=== PATIENT | male | born 1945 | race Caucasian/White ===

== ENCOUNTER 2017-01-27 14:32 | Inpatient (IN) | payer OTHER, MEDICAID ==
--- NOTE | 2017-01-27 14:54 | EDPHY ---
H & P Time Seen by Provider: 01/27/17 14:53 HPI/ROS: CHIEF COMPLAINT: Abdominal pain HISTORY OF PRESENT ILLNESS: Patient had hernia surgery about 2 and half years ago by a [facility] surgeon but he can't remember which 1. He tells me that 11:30 p.m. last night he started having nausea and multiple episodes of vomiting worse with oral intake. That finally stopped early this morning and then since late last night he has had epigastric abdominal pain that is moderate to severe and radiates to both sides but worse on the right and going to the back. Associated with nausea but no further vomiting or diarrhea. No fever. REVIEW OF SYSTEMS: Eye: no change in vision ENT: no sore throat Cardiac: no chest pain or syncope Pulmonary: no cough or SOB Abdomen: HPI Musculoskeletal: no back pain Skin: no rash Neuro: no headache Constitutional: no fever : no urinary symptoms A comprehensive 10 point review of systems is otherwise negative aside from elements mentioned in the history of present illness. PAST MEDICAL HISTORY: Bipolar, hernia surgery, high cholesterol. Not currently on any medications. Social history: Smokes marijuana otherwise no drugs or alcohol General Appearance: Alert and conversant, cooperative. Eyes: No scleral icterus. ENT, Mouth: Dry mucous membranes. Respiratory: Normal respiratory effort, breath sounds equal, lungs are clear to auscultation. Cardiovascular: Regular rate and rhythm. Gastrointestinal: Epigastric tenderness and right upper quadrant inspiratory arrest with deep palpation. No rebound or guarding. Neurological: Alert and oriented x3. Normally conversant. Face symmetric, normal movement and sensation in all extremities. Skin: Warm and dry, no rashes. Musculoskeletal: No peripheral edema and no joint swelling. Psychiatric: Not agitated. Emergency Department course/MDM: Patient appears mildly anxious. His right upper quadrant and epigastric tenderness. Plan for labs to include lipase and LFTs, gallbladder ultrasound, treatment of his symptoms with 100 mcg IV fentanyl and 4 mg of Zofran. 1602:echogenic debris in GB with 6mm wall, Finer. Plan to pursue diagnosis further with CT, discussed with patient and consented 180: Cholecystitis by CT per Benedicto. Results discussed with the patient at this time. Plan for IV antibiotics and admission to surgeon. 181: Trent Yeh to admit patient. Invanz 1g IV. Constitutional: Initial Vital Signs Temperature (C) 36.4 C 01/27/17 14:42 Heart Rate 94 01/27/17 14:42 Respiratory Rate 16 01/27/17 14:42 Blood Pressure 177/90 H 01/27/17 14:42 O2 Sat (%) 96 01/27/17 14:42 O2 Delivery Mode Nasal Cannula O2 (L/minute) 2 Allergies/Adverse Reactions: No Known Allergies Allergy (Unverified 04/15/13 09:25) Home Medications: Medication Instructions Recorded Ibuprofen [Motrin (*)] 200 mg PO TID PRN 01/27/17 Loratadine/Pseudoephedrine 1 each PO DAILY PRN 01/27/17 [Claritin-D 12 Hour Tablet] Omeprazole [Prilosec 20 mg] 20 mg PO DAILY 01/27/17 Medical Decision Making - Diagnostics Imaging Results: Imaging Impressions Abdomen Ultrasound 01/27/17 15:02 Impression: 1. Prominent gallbladder with diffuse mild echogenic particles within the lumen probably representing sludge without definitive gallstone. This along with gallbladder wall thickening can be seen with underlying chronic cholecystitis. No definitive gallstone is delineated. If indicated, consider HIDA scan with ejection fraction for further characterization. 2. Hepatic steatosis. 3. The pancreas demonstrates some fatty infiltration but otherwise is obscured secondary to bowel gas. Findings discussed with Ish Stark M.D. at 16:02 hour, 01/27/2017. Abdomen CT 01/27/17 16:03 Impression: 1. Suspect acute cholecystitis. No free fluid or abscess. 2. Moderate hiatal hernia. 3. Sigmoid diverticulosis. Findings discussed with Emergency Department physician, Ish Stark, at 1808 hours 01/27/2017. Differential Diagnosis: Differential diagnosis considered for abdominal pain including but not limited to appendicitis, cholecystitis, pancreatitis, gastritis and urinary tract infection. - Data Points Laboratory Results: Laboratory Results 01/27/17 15:05 01/27/17 15:05 01/27/17 01/27/17 15:05 15:05 WBC 17.69 10^3/uL H 10^3/uL (3.80-9.50) RBC 5.37 10^6/uL 10^6/uL (4.40-6.38) Hgb 15.4 g/dL g/dL (13.7-17.5) Hct 45.3 % % (40.0-51.0) MCV 84.4 fL fL (81.5-99.8) MCH 28.7 pg pg (27.9-34.1) MCHC 34.0 g/dL g/dL (32.4-36.7) RDW 13.0 % % (11.5-15.2) Plt Count 356 10^3/uL 10^3/uL (150-400) MPV 9.4 fL fL (8.7-11.7) Neut % (Auto) 89.6 % H % (39.3-74.2) Lymph % (Auto) 4.6 % L % (15.0-45.0) [place] % (Auto) 5.0 % % (4.5-13.0) Eos % (Auto) 0.0 % L % (0.6-7.6) Baso % (Auto) 0.3 % % (0.3-1.7) Nucleat RBC Rel Count 0.0 % % (0.0-0.2) Absolute Neuts (auto) 15.84 10^3/uL H 10^3/uL (1.70-6.50) Absolute Lymphs (auto) 0.82 10^3/uL L 10^3/uL (1.00-3.00) Absolute Monos (auto) 0.88 10^3/uL H 10^3/uL (0.30-0.80) Absolute Eos (auto) 0.00 10^3/uL L 10^3/uL (0.03-0.40) Absolute Basos (auto) 0.06 10^3/uL 10^3/uL (0.02-0.10) Absolute Nucleated RBC 0.00 10^3/uL 10^3/uL (0-0.01) Immature Gran % 0.5 % % (0.0-1.1) Immature Gran # 0.09 10^3/uL 10^3/uL (0.00-0.10) Sodium 137 mEq/L mEq/L (134-144) Potassium 4.1 mEq/L mEq/L (3.5-5.2) Chloride 98 mEq/L mEq/L (97-110) Carbon Dioxide 23 mEq/l mEq/l (22-31) Anion Gap 16 mEq/L mEq/L (8-16) BUN 13 mg/dL mg/dL (7-23) Creatinine 0.9 mg/dL mg/dL (0.7-1.3) Estimated GFR > 60 Glucose 148 mg/dL H mg/dL (70-100) Calcium 9.7 mg/dL mg/dL (8.5-10.4) Total Bilirubin 1.1 mg/dL mg/dL (0.1-1.4) Conjugated Bilirubin 0.5 mg/dL mg/dL (0.0-0.5) Unconjugated Bilirubin 0.6 mg/dL mg/dL (0.0-1.1) AST 36 IU/L IU/L (17-59) ALT 36 IU/L IU/L (21-72) Alkaline Phosphatase 81 IU/L IU/L (38-126) Total Protein 7.4 g/dL g/dL (6.3-8.2) Albumin 4.4 g/dL g/dL (3.5-5.0) Lipase 53 IU/L IU/L (23-300) Medications Given: Discontinued Medications Bupivacaine HCl (Sensorcaine 0.5% Vial) Confirm Administered Dose 30 ml .ROUTE .STK-MED ONE Stop: 01/27/17 19:21 Last Admin: 01/27/17 21:43 Dose: 20 ml Cefazolin Sodium (Ancef Syringe) Confirm Administered Dose 1 gm .ROUTE .STK-MED ONE Stop: 01/27/17 19:24 Last Admin: 01/27/17 21:43 Dose: Not Given Fentanyl (Sublimaze) 100 mcg IVP EDNOW ONE Stop: 01/27/17 15:03 Last Admin: 01/27/17 15:25 Dose: 100 mcg Heparin Sodium (Porcine) (Heparin Sodium) Confirm Administered Dose 1,000 unit .ROUTE .STK-MED ONE Stop: 01/27/17 19:22 Last Admin: 01/27/17 21:24 Dose: 1,000 unit Sodium Chloride (Ns) 1,000 mls @ 0 mls/hr IV EDNOW ONE; Wide Open PRN Reason: Protocol Stop: 01/27/17 15:03 Last Admin: 01/27/17 15:25 Dose: 1,000 mls Sodium Chloride (Ns) 1,000 mls @ 0 mls/hr IV EDNOW ONE; Wide Open PRN Reason: Protocol Stop: 01/27/17 18:11 Last Admin: 01/27/17 18:40 Dose: 1,000 mls Ertapenem 1 gm/ Sodium (Chloride) 100 mls @ 200 mls/hr IV EDNOW ONE PRN Reason: Protocol Stop: 01/27/17 18:39 Last Admin: 01/27/17 18:41 Dose: 100 mls Ondansetron HCl (Zofran) 4 mg IVP EDNOW ONE Stop: 01/27/17 15:03 Last Admin: 01/27/17 15:25 Dose: 4 mg Departure - Departure Disposition: [facility] Inpatient Acute Clinical Impression: Acute cholecystitis Condition: Good
[2017-01-27] MEDS ORDERED: fentaNYL 100 MCG/2 ML INJ IVP ONE (15:02)
[2017-01-27] MEDS ORDERED: NS 1,000 ML IV ONE ×2 (15:02→18:10)
[2017-01-27] MEDS ORDERED: ONDANSETRON 4 MG/2 ML VIAL IVP ONE (15:02)
[2017-01-27 15:14] LABS: % IMMATURE GRANULYOCYTES 0.5 % (0.0-1.1); ABSOLUTE IMMATURE GRANULOCYTES 0.09 10^3/uL (0.00-0.10); ADD DIFF? NO; ADD MORPH? NO; ADD SCAN? NO; ATYPICAL LYMPHOCYTE FLAG 0 (0-99); FRAGMENT RBC FLAG 0 (0-99); HEMATOCRIT 45.3 % (40.0-51.0); HEMOGLOBIN 15.4 g/dL (13.7-17.5); LEFT SHIFT FLG 0 (0-99); LIPEMIA HEMOLYSIS FLAG 90 (0-99); MEAN CELL HEMOGLOBIN 28.7 pg (27.9-34.1); MEAN CELL VOLUME 84.4 fL (81.5-99.8); MEAN PLATELET VOLUME 9.4 fL (8.7-11.7); PLATELET CLUMPS FLAG 30 (0-99); PLATELET COUNT 356 10^3/uL (150-400); RED BLOOD CELL COUNT 5.37 10^6/uL (4.40-6.38)
[2017-01-27 15:41] LABS: ALANINE AMINOTRANSFERASE 36 IU/L (21-72); ALBUMIN 4.4 g/dL (3.5-5.0); ALKALINE PHOSPHATASE 81 IU/L (38-126); ANION GAP 16 mEq/L (8-16); ASPARTATE AMINOTRANSFERASE 36 IU/L (17-59); BILIRUBIN,TOTAL 1.1 mg/dL (0.1-1.4); BILIRUBIN-CONJUGATED 0.5 mg/dL (0.0-0.5); BILIRUBIN-UNCONJUGATED 0.6 mg/dL (0.0-1.1); CALCIUM 9.7 mg/dL (8.5-10.4); CARBON DIOXIDE 23 mEq/l (22-31); CHLORIDE 98 mEq/L (97-110); CREATININE 0.9 mg/dL (0.7-1.3); GLOMERULAR FILTRATION RATE > 60; GLUCOSE 148 mg/dL (70-100); POTASSIUM 4.1 mEq/L (3.5-5.2); SODIUM 137 mEq/L (134-144); TOTAL PROTEIN 7.4 g/dL (6.3-8.2)
[2017-01-27] MEDS ORDERED: IOPAMIDOL (ISOVUE-300) 100 ML BTL ONE (16:50)
[2017-01-27] MEDS ORDERED: ONDANSETRON 4 MG/2 ML VIAL ONE (17:14)
[2017-01-27] MEDS ORDERED: fentaNYL 100 MCG/2 ML INJ ONE ×3 (17:14→19:17)
[2017-01-27] MEDS ORDERED: ERTAPENEM 1 GM in NS 100 ML IV ONE (18:10)
[2017-01-27] MEDS ORDERED: PROPOFOL 200 MG/20 ML VIAL ONE (19:17)
[2017-01-27] MEDS ORDERED: ROCURONIUM 50 MG/5 ML VIAL ONE (19:17)
[2017-01-27] MEDS ORDERED: BUPIVACAINE 0.5% 30 ML SDV ONE (19:20)
[2017-01-27] MEDS ORDERED: HEPARIN 1000 UNIT/1 ML MDV ONE (19:21)
[2017-01-27] MEDS ORDERED: ceFAZolin 1 GM/5 ML SYR ONE (19:23)
--- NOTE | 2017-01-27 19:34 | PDANEPAE ---
ANE History of Present Illness acute cholecystitis ANE Past Medical History - Pulmonary History Hx Oxygen in Use at Home: No - Endocrine History Hx Diabetes: No ANE Review of Systems Review of Systems: ANE Patient History - Allergies Allergies/Adverse Reactions: No Known Allergies Allergy (Unverified 04/15/13 09:25) - Home Medications Home Medications: Ibuprofen [Motrin (*)] 200 mg PO TID PRN 01/27/17 [Last Taken Unknown] Loratadine/Pseudoephedrine [Claritin-D 12 Hour Tablet] 1 each PO DAILY PRN 01/27 [Last Taken Unknown] Omeprazole [Prilosec 20 mg] 20 mg PO DAILY 01/27/17 [Last Taken Unknown] - NPO status NPO Since - Liquids (Date): 01/27/17 NPO Since - Liquids (Time): 14:15 NPO Since - Solids (Date): 01/26/17 NPO Since - Solids (Time): 20:00 ANE Labs/Vital Signs - Labs Result Diagrams: 01/27/17 15:05 01/27/17 15:05 - Vital Signs Blood Pressure: 142/102 Heart Rate: 93 Respiratory Rate: 18 O2 Sat (%): 95 Height: 182.88 cm Weight: 95.254 kg ANE Physical Exam - Airway Neck exam: FROM Mallampati Score: Class 2 Mouth exam: normal dental/mouth exam - Pulmonary Pulmonary: no respiratory distress - Cardiovascular Cardiovascular: regular rate and rhythym - ASA Status ASA Status: II ANE Anesthesia Plan Anesthesia Plan: general endotracheal anesthesia
--- NOTE | 2017-01-27 20:10 | GHP ---
[f rep st] PREOP HISTORY AND PHYSICAL DATE OF ADMISSION: 01/27/2017 HISTORY OF PRESENT ILLNESS: The patient is seen in the ER with 24 hours of vomiting and abdominal pa in radiating into his back. Ultrasound shows a thickened gallbladder with sludge and possible tiny s tones. No definite stones. CT scan of the abdomen also shows a thickened inflamed gallbladder with no other etiology for his pain. LFTs are normal. He is admitted at this time for laparoscopic fernando cystectomy for acute cholecystitis. Risks and options have been fully discussed and he wishes to pro ceed. PAST MEDICAL HISTORY: Includes a previous abdominal hernia surgery which was done laparoscopically. He has history of bipolar disease and elevated cholesterol. ALLERGIES: None. MEDICATIONS: None. REVIEW OF SYSTEMS: Reveals no additional medical problems on a full 10-point review of systems. Spe cifically he does not smoke, although he does use marijuana occasionally. Denies any cardiopulmonary symptoms. PHYSICAL EXAM: GENERAL: This is an alert 71-year-old male, who is in some discomfort but cooperativ e. HEAD and NECK: Reveals no icterus. No adenopathy. No oral lesions. Neck is supple and no thyr omegaly. CHEST: Reveals symmetrical breath sounds which were clear. CARDIAC: Reveals regular rhyth m without murmurs. ABDOMEN: Soft. he has tenderness in the epigastrium. He is slightly distended. There are no peritoneal signs. EXTREMITIES: Are benign with full pulses. Full range of motion. NEURO: Reveals him to be oriented with symmetrical physiologic neuro exam. SKIN: Intact with no le sions. PSYCHIATRIC: He appears to be oriented and alert and cooperative with a slight blunted affec t. IMPRESSION: Acute cholecystitis. PLAN: Laparoscopic cholecystectomy. Again, the risks and options have been fully discussed and he w ishes to proceed. /[id number]/MODL
[2017-01-27] MEDS ORDERED: HYDROmorphONE/DILAUDID 2 MG/ML INJ ONE (20:52)
[2017-01-27] MEDS ORDERED: NALOXONE HCL 0.4 MG/ML INJ IVP PRN ×2 (21:49→21:50)
[2017-01-27] MEDS ORDERED: ONDANSETRON 4 MG/2 ML VIAL IVP PRN (21:50)
[2017-01-27] MEDS ORDERED: PROMETHAZINE HCL 25 MG/ML INJ IVP PRN (21:50)
[2017-01-27] MEDS ORDERED: fentaNYL 100 MCG/2 ML INJ IVP PRN (21:50)
[2017-01-27] MEDS ORDERED: HYDROmorphONE/DILAUDID 1 MG/ML INJ IVP PRN ×2 (21:50→22:12)
--- NOTE | 2017-01-27 21:59 | POSTANESTH ---
Post Anesthetic Evaluation Cardiovascular Status: Normal, Stable Respiratory Status: Normal, Stable Level of Consciousness/Mental Status: Mildly Sleepy, Arousable Pain Control: Adequate, Prn Tx Ordered Nausea/Vomiting Control: Adequate, Prn Tx Ordered Complications Possibly Related to Anesthesia: None Noted
[2017-01-27] MEDS ORDERED: LABETALOL HCL 5 MG/ML 20 ML MDV ONE (22:03)
--- NOTE | 2017-01-27 22:10 | POSTOPPROG ---
Post Op Note Date of Operation: 01/27/17 Surgeon: Ari Yeh Anesthesiologist: harpreet Anesthesia: GET(General Endotracheal) Pre-op Diagnosis: ACUTE SHAE Post-op Diagnosis: SAME Indication: PAIN Procedure: LAP CHOLEY Findings: ACUTE NECROTIC HYDROPSED GB/ NO STONES Inf/Abcess present in the surg proc area at time of surgery?: Yes Depth: Organ Space EBL: 50-100 Complications: 0 Drains: Yoel Regan Specimen(s): GALLBLADDER AND CULTURE
[2017-01-27] MEDS ORDERED: D5W 1/2 NS W/ 20 KCl/L 1,000 ML IV SCH (22:15)
--- NOTE | 2017-01-27 22:40 | GOP ---
[f rep st] OPERATIVE REPORT DATE OF OPERATION: 01/27/2017 SURGEON: Ari Yeh MD WEB ADMINISTRATOR: None. ANESTHESIOLOGIST: Dr. Bedoya. The patient was taken to the recovery room in satisfactory condition. PREOPERATIVE DIAGNOSIS: Acute cholecystitis. POSTOPERATIVE DIAGNOSIS: Acute cholecystitis. PROCEDURE PERFORMED: Laparoscopic cholecystectomy. FINDINGS: Patient was found to have a severe acute cholecystitis, markedly thickened necrotic gallbl adder completely covered with tightly adherent omentum. Ducts were relatively small. ESTIMATED BLOOD LOSS: Less than 100 cc. DESCRIPTION OF PROCEDURE: The patient taken to the operating room, where he received satisfactory ge neral endotracheal anesthesia by Dr. Bedoya. He was placed in supine position, prepped and draped in usual sterile fashion. A periumbilical incision was made. A Veress needle inserted. Pneumoperiton eum was established. Trocar was introduced. Laparoscope introduced. Good visualization was obtaine d. Three other trocars were placed in the upper abdomen under direct vision. The gallbladder was co mpletely obscured. Adhesions of the omentum to the gallbladder were taken down till the gallbladder could be elevated up and the dissection extended on down the length of the gallbladder down to the in fundibulum. Omentum was markedly adherent and difficult to dissect off the gallbladder. Eventually, the cystic triangle was exposed. This was carefully dissected free. There was marked inflammation in the area. The common duct was identified separately. The cystic triangle was then carefully diss ected flush with the gallbladder. Clear space was created. The cystic artery was multiply hemoclipp ed and divided. The cystic duct was encircled. It was divided with the Endo-ADARSH stapler flush with the gallbladder wall. Prior to this, the gallbladder had been mobilized from the liver bed and disse cted from the fundus down to help clarify the anatomy. The gallbladder was then completely from the hepatic fossa and extracted through the upper midline port site. The wound was irrigated. Hemostasis was assured. A 15 round silicone drain was brought out through one of the lower trocar s ites and secured to the skin with a 2-0 silk suture. The wound was copiously irrigated again. Hemos tasis appeared to be adequate. Trocars were removed under direct vision. Trocar sites were closed w ith 0 Vicryl for the fascia, 4-0 Monocryl subcuticular stitch for the skin. All layers infiltrated w ith 0.5% Marcaine. COMPLICATIONS: There were no complications. /[id number]/MODL
[2017-01-27] MEDS: KETOROLAC 15 MG/1 ML SDV IVP SCH (23:21)
[2017-01-27] MEDS ORDERED: LABETALOL HCL 5 MG/ML 20 ML MDV IV ONE (23:30)
[2017-01-28 05:13] LABS: % IMMATURE GRANULYOCYTES 0.6 % (0.0-1.1); ABSOLUTE IMMATURE GRANULOCYTES 0.09 10^3/uL (0.00-0.10); ADD DIFF? NO; ADD MORPH? NO; ATYPICAL LYMPHOCYTE FLAG 0 (0-99); FRAGMENT RBC FLAG 0 (0-99); HEMATOCRIT 38.3 % (40.0-51.0); HEMOGLOBIN 12.7 g/dL (13.7-17.5); LEFT SHIFT FLG 0 (0-99); LIPEMIA HEMOLYSIS FLAG 80 (0-99); MEAN CELL HEMOGLOBIN 28.3 pg (27.9-34.1); MEAN CELL HEMOGLOBIN CONCENTR. 33.2 g/dL (32.4-36.7); MEAN CELL VOLUME 85.5 fL (81.5-99.8); MEAN PLATELET VOLUME 9.7 fL (8.7-11.7); PLATELET CLUMPS FLAG 0 (0-99); PLATELET COUNT 262 10^3/uL (150-400); RED BLOOD CELL COUNT 4.48 10^6/uL (4.40-6.38); RED CELL DISTRIBUTION WIDTH 13.2 % (11.5-15.2)
[2017-01-28 05:14] LABS: ADD SCAN? NO
[2017-01-28 05:18] LABS: INR 1.26 (0.83-1.16); PROTIME(PATIENT) 15.8 SEC (12.0-15.0)
[2017-01-28 05:22] LABS: ALANINE AMINOTRANSFERASE 60 IU/L (21-72); ALBUMIN 2.9 g/dL (3.5-5.0); ALKALINE PHOSPHATASE 54 IU/L (38-126); AMYLASE < 30 IU/L (30-110); ANION GAP 7 mEq/L (8-16); ASPARTATE AMINOTRANSFERASE 71 IU/L (17-59); BILIRUBIN-CONJUGATED 0.3 mg/dL (0.0-0.5); BILIRUBIN-UNCONJUGATED 0.7 mg/dL (0.0-1.1); CALCIUM 8.8 mg/dL (8.5-10.4); CARBON DIOXIDE 26 mEq/l (22-31); CHLORIDE 102 mEq/L (97-110); GLOMERULAR FILTRATION RATE > 60; GLUCOSE 150 mg/dL (70-100); POTASSIUM 4.6 mEq/L (3.5-5.2); SODIUM 135 mEq/L (134-144); TOTAL PROTEIN 5.4 g/dL (6.3-8.2)
[2017-01-28] MEDS: KETOROLAC 15 MG/1 ML SDV IVP SCH ×4 (05:28→22:56)
[2017-01-28] MEDS: PANTOPRAZOLE SODIUM 40 MG TAB PO SCH (09:52)
[2017-01-28] MEDS: ERTAPENEM 1 GM in NS 100 ML IV SCH (09:52)
--- NOTE | 2017-01-28 10:49 | SOAPPROG ---
SOAP Progress Note Assessment/Plan: Assessment/Plan: 71 Y M s/p lap fernando, POD#1, late last night, for necrotic adhesed gallbladder. Eating. Pain controlled. CHRIS drain in place. Dispo: live alone in [place] in apt with nearby friends. likely d/c to home tomorrow. would like to have one more dose of IV abx and can likely remove drain prior to d/c. S: pain controlled. has walked. passing gas. no stools. no n/v O: alert, nad mmm, anicteric no wob rrr abd softly protuberant, drain serosanguinous, inc cdi 01/28/17 10:47 Objective: Vital Signs Temp Pulse Resp BP Pulse Ox 36.9 C 84 16 106/77 92 01/28/17 08:00 01/28/17 08:00 01/28/17 08:00 01/28/17 08:00 01/28/17 08:00 Microbiology 01/27/17 21:30 Gram Stain - Final Gallbladder - Eswab Laboratory Results 01/28/17 04:40 01/28/17 04:40 01/27/17 01/28/17 01/29/17 05:59 05:59 05:59 Intake Total 2990 875 Output Total 190 370 Balance 2800 505 PT 15.8 SEC (12.0-15.0) H 01/28/17 04:40 INR 1.26 (0.83-1.16) H 01/28/17 04:40 ICD10 Worksheet Patient Problems: Problems Problem Status Onset Acute cholecystitis Acute
--- NOTE | 2017-01-28 10:56 | ASMTCMCOM ---
CM Note CM Note Notes: Pt is a 71 y/o man admited w/ cholecystitis. Pt had a cholecystectomy laparoscopy procedure on 01/27/17. Pt will most likely discharge independent w/out any needs when medically stable with supportive . CM available for any changes. Date Signed: 01/28/2017 10:55 AM Electronically Signed By:ABHISHEK Avalos
[2017-01-28] MEDS: OXYCODONE/APAP 5/325 TAB PO PRN (20:38)
[2017-01-28] MEDS ORDERED: LORATADINE PO PRN (22:15)
[2017-01-28] MEDS ORDERED: PSEUDOEPHEDRINE PO PRN (22:15)
[2017-01-29] MEDS: OXYCODONE/APAP 5/325 TAB PO PRN (02:19)
[2017-01-29 04:30] VITALS: PULSE 81
[2017-01-29] MEDS: KETOROLAC 15 MG/1 ML SDV IVP SCH (05:19)
[2017-01-29] MEDS: ERTAPENEM 1 GM in NS 100 ML IV SCH (08:28)
[2017-01-29] MEDS: PANTOPRAZOLE SODIUM 40 MG TAB PO SCH (08:28)
[2017-01-29 08:43] VITALS: BP 126/79; RESP 20; TEMP 98; O2SAT 95
--- NOTE | 2017-01-29 10:31 | SOAPPROG ---
SOAP Progress Note Assessment/Plan: Assessment/Plan: 71 Y M s/p lap fernando, POD#2, for necrotic adhesed gallbladder. D/c CHRIS drain. +flatus, no BM, but patient is comfortable. He refused laxative prior to d/c. We discussed laxative choices. He has MOM at home. D/c pt to home. Rx percocet, augmentin. Discussed all d/c instructions with patient. S: not much pain. No n/v. walking fine. wants to go home. O: alert, nad, sitting oob comfortably in chair mmm, anicteric no wob rrr abd softly protuberant, drain serosanguinous, inc cdi, drain serosanguinous and thin 01/29/17 10:29 Objective: Vital Signs Temp Pulse Resp BP Pulse Ox 36.6 C 81 20 126/79 H 95 01/29/17 08:00 01/29/17 08:00 01/29/17 08:00 01/29/17 08:00 01/29/17 08:00 Microbiology 01/27/17 21:30 Gram Stain - Final Gallbladder - Eswab Laboratory Results 01/28/17 04:40 01/28/17 04:40 01/28/17 01/29/17 01/30/17 05:59 05:59 05:59 Intake Total 2990 2775 500 Output Total 190 1890 Balance 2800 885 500 PT 15.8 SEC (12.0-15.0) H 01/28/17 04:40 INR 1.26 (0.83-1.16) H 01/28/17 04:40 ICD10 Worksheet Patient Problems: Problems Problem Status Onset Acute cholecystitis Acute
--- NOTE | 2017-01-29 18:03 | ASDISCHSUM ---
Discharge Information Plan Status:Home with No Needs Medically Cleared to Leave: Discharge Date:01/29/2017 11:41 AM CM D/C Disposition:Home, Routine, Self-Care ADT D/C Disposition:Home, Routine, Self-Care Projected Discharge Date:01/29/2017 12:00 AM Transportation at D/C:Family Discharge Delay Reason: Follow-Up Date:01/29/2017 12:00 AM Discharge Slot: Final Diagnosis: Placement Information Patient Contact Information Contact Name:MARLA Relationship:Freeman Address: Work Phone: City:[place] Alternate Phone: [place] Email: Financial Information Financial Class:Medicare Advantage Plans Primary Plan Desc:[employer] MED[employer] Primary Plan Number:[id number] Secondary Plan Desc:[employer] [place] Secondary Plan Number:[id number] Assessment Information [facility] CM Progress Note CM Note CM Note Notes: Pt is a 71 y/o man admited w/ cholecystitis. Pt had a cholecystectomy laparoscopy procedure on 01/27/17. Pt will most likely discharge independent w/out any needs when medically stable with supportive . CM available for any changes. Date Signed: 01/28/2017 10:55 AM Electronically Signed By:ABHISHEK vAalos Intervention Information Intervention Type:*IM-Signed Date of Service:01/29/2017 10:35 AM Patient Type:Inpatient Staff Member:Ernestina Montoya Hours: Discipline: Severity: Comment:
== END 2017-01-29 11:41 | disposition home or self-care (01) | DRG 419 ==
LOC: F3E 22:56
PROVIDERS: ADMIT Surgery; ATTEND Surgery
PROC: 0FT44ZZ Resection of Gallbladder, Percutaneous Endoscopic Approach (ICD-10-PCS; principal; 2017-01-27 19:45)
DX: K81.0 Acute cholecystitis (principal); F31.9 Bipolar disorder, unspecified
CPT/HCPCS: 96365; J1170; J1335; J1885; J2405; J2704; J3010; J3490; Q9967